=== PATIENT | male | born 1980 | race Caucasian/White ===

== ENCOUNTER → 2016-07-01 | Outpatient (CLI) | payer OTHER ==
[~2016-07-01] VITALS: Ht 185.4 cm; Wt 83.0 kg
[~2016-07-01] MED LIST: HYDROCODON-ACE1 EAC7 PO; NEXIUM40 MG PO
== END | disposition home or self-care (01) ==
LOC: AMB 12:14
PROC: 0TF7XZZ Fragmentation in Left Ureter, External Approach (ICD-10-PCS; principal; 2016-07-01)
DX: N20.1 Calculus of ureter (principal); Z72.0 Tobacco use
CPT/HCPCS: 74010; J2250; J3010